=== PATIENT | male | born 1985 | race Caucasian/White ===

== ENCOUNTER 2022-05-17 12:56 | Emergency (ER) | payer OTHER ==
[2022-05-17 13:06] VITALS: BP 120/73; PULSE 92; RESP 20; TEMP 98.4; BMI 22.6
== END 2022-05-17 14:58 | disposition home or self-care (01) ==
LOC: JER 12:56
DX: R00.2 Palpitations (principal); R53.81 Other malaise; R51.9 Headache, unspecified; R06.02 Shortness of breath; F41.9 Anxiety disorder, unspecified
CPT/HCPCS: 82962; 93005; 93010; 99283-25